=== PATIENT | male | born 1935 | race Caucasian/White ===

== ENCOUNTER → 2022-03-25 | Outpatient (CLI) | payer MEDICARE, OTHER ==
[~2022-03-25] MED LIST: AZIT250 PO; CEFP200 PO; CITA20 PO; CLIN300 PO; CLOP75 PO; Hair, Skin & N1 EACH PO; IBUP400 PO; OLAN5 PO; PANT40 PO; Pravachol80 MG PO; SACC250C PO; Tylenol325 MG PO
== END | disposition home or self-care (01) ==
LOC: LAB 13:17 → LAB SHORT 13:17
DX: L98.499 Non-pressure chronic ulcer of skin of other sites with unspecified severity (principal)
CPT/HCPCS: 87070; 87075; 87205

== ENCOUNTER 2022-06-19 19:22 | Inpatient (IN) | payer MEDICARE, OTHER ==
[~2022-06-19] VITALS: Ht 177.8 cm; Wt 68.0 kg
[~2022-06-19 19:22] MED LIST changes: +ACET325 PR; -Tylenol325 MG PO
[2022-06-19 21:36] LABS: BASOPHILS PERCENT AUTO 0 % (0-2); EOSINOPHILS PERCENT AUTO 0 % (0-6); Hematocrit 32.7 % (37.0-53.0); Hemoglobin 10.7 g/dL (13.5-17.5); IMMATURE GRAN ABSOLUTE AUTO 0.06 K/mm3 (0.00-0.10); IMMATURE GRAN PERCENT AUTO 2 % (0-1); LYMPHOCYTES ABSOLUTE AUTO 0.47 K/mm3 (0.84-5.20); LYMPHOCYTES PERCENT AUTO 13 % (21-46); MONOCYTES ABSOLUTE AUTO 0.53 K/mm3 (0.16-1.47); MONOCYTES PERCENT AUTO 15 % (4-13); Mean Corpuscular HGB 29.7 pg (26.0-34.0); Mean Corpuscular HGB Conc 32.7 g/dL (31.5-36.5); Mean Corpuscular Volume 91 fL (80-100); Mean Platelet Volume 11.2 fL (9.1-12.4); NEUTROPHILS PERCENT AUTO 71 % (41-73); Platelet Count 149 K/mm3 (150-400); RDW Coefficient Variation 13.1 % (11.7-14.2); RDW Standard Deviation 43.4 fL (35.1-46.3); White Blood Cell Count 3.66 K/mm3 (4.00-11.30)
[2022-06-19 21:47] LABS: Albumin, Blood 1.9 g/dL (3.4-5.0); Albumin/Globulin Ratio 0.7 (0.8-1.8); Bilirubin, Total 0.4 mg/dL (0.1-1.0); Bun/Creatinine Ratio 26.6 (12.0-20.0); Calcium, Blood 6.5 mg/dL (8.5-10.1); Creatinine, Blood 0.64 mg/dL (0.60-1.20); Globulin, Blood 2.8 g/dL (2.2-4.0); Magnesium, Blood 1.6 mg/dL (1.6-2.4); Potassium, Blood 3.6 mmol/L (3.5-5.5); Total Protein, Blood 4.7 g/dL (6.4-8.2)
[2022-06-19 23:04] LABS: Influenza A, PCR NEGATIVE (NEGATIVE); Influenza B, PCR NEGATIVE (NEGATIVE); Resp Syncytial Virus, PCR NEGATIVE (NEGATIVE)
[2022-06-19 23:32] LABS: SARS-Cov-2 (COVID-19) PCR, MMC POSITIVE (NEGATIVE)
--- NOTE | 2022-06-20 00:21 | NUR ---
PT ARRIVES TO THE FLOOR AT 2315HRS. PT IS ALERT TO SELF AND PLACE ONLY. BED IS LOW AND LOCKED, CALL LIGHT WITHIN REACH.
--- NOTE | 2022-06-20 05:01 | NUR ---
ASSUMED CARE OF PT AT 1900 HRS. PT IS A&OX4, HAS JEFFERSON IN PLACE FOR RETENTION AND IS ABLE TO MAKE NEEDS KNOWN. POST OP DAY 1 FOR I&D AND BILAT ABD DRAIN PLACEMENT, INCISIONS ARE CDI, CSM INTACT. PAIN IS MANAGED WITH PRN FENTANYL. PT TOLERATING CLEAR LIQUIDS. DRAINS PRODUCING MODERATE AMOUNTS OF SERO SANG FLUID. PT ABLE TO SLEEP 6+ HOURS THIS SHIFT. WILL CONTINUE TO MONITOR AND GIVE REPORT TO DAYSHIFT RN.
[2022-06-20 05:02] LABS: Hematocrit 37.8 % (37.0-53.0); Hemoglobin 12.5 g/dL (13.5-17.5); Mean Corpuscular HGB 29.1 pg (26.0-34.0); Mean Corpuscular HGB Conc 33.1 g/dL (31.5-36.5); Mean Corpuscular Volume 88 fL (80-100); Mean Platelet Volume 10.4 fL (9.1-12.4); Platelet Count 188 K/mm3 (150-400); RDW Coefficient Variation 12.8 % (11.7-14.2); RDW Standard Deviation 41.2 fL (35.1-46.3); White Blood Cell Count 4.81 K/mm3 (4.00-11.30)
[2022-06-20 05:18] LABS: Bun/Creatinine Ratio 22.5 (12.0-20.0); Calcium, Blood 8.2 mg/dL (8.5-10.1); Creatinine, Blood 0.84 mg/dL (0.60-1.20); Potassium, Blood 3.6 mmol/L (3.5-5.5)
--- NOTE | 2022-06-20 05:37 | NUR ---
ASSUMED CARE OF PT AT 2315 HRS. PT IS ALERT TO SELF AND PLACE ONLY AND IS [place]. ARRIVES TO THE FLOOR FROM THE ED FOR A MECHANICAL FALL. PT WAS C+ 3 WEEKS AGO, TESTED IN THE ED AND IS STILL C+ BUT NOT SHOWING ANY S/S. PAIN CONTROLLED WITH PRN DILAUDID. HAS R HIP FRACTURE POST FALL AT HOME YESTERDAY, CSM IS INTACT. PT ON [place]. HAS BED ALARM ON FOR SAFETY. HAS BEEN NPO SINCE MIDNIGHT. WILL CONTINUE TO MONITOR AND GIVE HANDOFF REPORT TO DAYSHIFT RN.
--- NOTE | 2022-06-20 15:45 | NUR ---
Met with Pt's son, Pt's brother, and brother's in [place]. Engaged in active listening as family reports Pt's wishes at this point are to start focusing on comfort and would like to get Pt home with hospice services. Educated on comfort care and hospice philosophy with V/U made by family. Family elects comfort care. Discussed hospice agencies to choose and answered questions. Continued supportive visit and active listening. Pt requires assistance with repositioning in bed, assistance with bathing, dressing and is incontinent of bladder. Pt not ambulatory and is bedbound. Pt has not been eating and drinking. Spoke with RN Edwin Love and discussed case. Kate will discuss further with family regarding hospice agency choices. Pt will need a same day admit onto hospice services. Spoke with Pt's Primary RN Richy and discussed case. Spoke with Dr Maria and discussed case. Placed Comfort Care order, comfort care order set, and D/C maintenance medications per V/O from Dr Maria. PPS 30% ADLs 5/6 Palliative Care will remain available
[2022-06-20 17:04] LABS: Source, Urine Foley catheter
[2022-06-20 17:26] LABS: Appearance, Urine Clear (Clear); Bilirubin, Urine Neg (Neg); Blood, Urine 2+ (Neg); Color, Urine Yellow (P-Yellow); Glucose Qualitative, Urine Neg (Neg); Ketones, Urine 1+ (Neg); Leukocyte Esterase, Urine Neg (Neg); Nitrite, Urine Neg (Neg); Protein, Urine 1+ (Neg); Urobilinogen, Urine NORM (Normal)
[2022-06-20 17:51] LABS: Bacteria Few /hpf; Hyaline Casts 0-2 /lpf (0-2); Squamous Epithelial Cells Rare /hpf (Few); White Blood Cells, Urine 0-2 /hpf (0-5)
--- NOTE | 2022-06-21 07:01 | NUR ---
SUMMARY PT PAIN TX PER EMAR. PT REMAINED COMFORTABLE DURING SHIFT. PT SLEPT WELL.
--- NOTE | 2022-06-21 18:56 | NUR ---
SHIFT SUMMARY PATIENT ON COMFORT CARE, PLAN IS TO DISCHARGE TOMORROW, FAMILY HAVE SCRIPTS AND ARE GETTING EQUIPMENT DELIVERED TODAY, CARE MANAGEMENT/PALIATIVE CARE FOLLOWING PT CARE AND ASSISTING WITH PT/FAMILY NEEDS FOR DISCHARGE.
--- NOTE | 2022-06-21 21:00 | NUR ---
PT RESTING COMFORTABLY IN BED. PT DENIES PAIN WHEN ASKED, AND DENIES NEEDS. WILL CONTINUE TO ASSESS T/O SHIFT.
--- NOTE | 2022-06-22 04:34 | NUR ---
SHIFT SUMMARY PT HAS RESTED COMFORTABLY T/O THE SHIFT WITH NO VERBAL OR NON VERBAL INDICATORS OF PAIN. NO GRIMACING OR MOANING. PT ASK SEVERAL TIMES T/O THE SHIFT IF HE WAS HAVING PAIN AND HE REPORTS NO PAIN AND DECLINES ANYTHING FOR PAIN EACH TIME WHEN ASKED. COMFORT ASSESSED T/O SHIFT. PT REQUESTS SIPS OF WATER T/O SHIFT. JEFFERSON IN PLACE PATENT AND DRAINING NOT MUCH OUTPUT. PT WITHOUT AIR HUNGER OR SECREATIONS. COMFORT ASSESSED T/O SHIFT, PT REPOSITIONS HIMSELF INDEPDENTLY IN BED NEEDED. BED IN LOWEST POSITION, CALL LIGHT WITHIN REACH.
--- NOTE | 2022-06-22 07:30 | NUR ---
ASSUMED CARE: PT IN BED, ATTEMPTED TO BOOST AND PT STATED THAT WAS PAINFUL. UPON FURTHER EVALUATION PT SEEMED ANNOYED AT NURSING QUESTIONS. PT IS [place]. SPEECH GARBLED AT TIMES. PT STATED HE WAS THIRSTY. OFFERED WATER AND HE SAID HE COULD DO IT HIMSELF. OFFERED TO HELP HIM GET REPOSITIONED IN BED OR TO HELP HIM WITH WATER AND PT DECLINED. ASKED PT IF HE WAS IN PAIN OR HUNGRY AND HE SAID HE WAS A LITTLE HUNGRY. ASKED IF I COULD HELP HIM WITH HIS FOOD AND HE STATED HE COULD DO IT HIMSELF. DISCUSSED WITH SPEECH THERAPIST EARLY INTERVENTION TO SEE IF SHE COULD ASSIST HIM FURTHER SINCE HE WAS HER PT YESTERDAY.
[2022-06-22] MEDS ORDERED: ATROPINE S0.4 MG/1 M SL (10:59)
[2022-06-22] MEDS ORDERED: OXAYDO5 M1 PO (11:00)
[2022-06-22] MEDS ORDERED: MORP20L SL (11:00)
[2022-06-22] MEDS ORDERED: MIRALAX17 GM PO (11:01)
[2022-06-22] MEDS ORDERED: TRANSDERM-SCOP1 EA10 TD (11:01)
--- NOTE | 2022-06-22 11:48 | NUR ---
PT'S SON CALLED WANTING TO KNOW WHEN PT WAS LEAVING. HISTORICAL INTERPRETER STATED AMBULANCE COMPANY CALLED AND SAID THEY WERE AWARE OF PT BUT RUNNING BEHIND DUE TO EMERGENCIES. CALL TO DR HURTADO AND DC PLANNING TO CHECK ON DC COORDINATION. CALL TO HOSPICE NURSE TO GET FAX NUMBER AND MED LIST WAS FAXED. HOSPICE NURSE STATED WILL CALL BACK FOR ETA. DR HURTADO TO SEE PT AND SON IS CURRENTLY AT BEDSIDE. SON REQUESTED PAIN MEDS FOR PT DUE TO AGITATION. NO FURTHER NEEDS. AWAITING RIDE TO GO HOME.
--- NOTE | 2022-06-22 12:33 | NUR ---
TRANSPORT CREW ARRIVED TO COLLECT PT. FAMILY AT BEDSIDE AND AWARE. PT'S IV'S DC'D WNL. JEFFERSON REMAINS IN PLACE. PT TAKEN VIA GURNEY BY CREW AND ESCORTED OUT. FAMILY FOLLOWING. CALLED HOSPICE NURSE TO MAKE HIM AWARE OF PT LEAVING. FAMILY AWARE THAT NURSE WILL CALL THEM. MED LIST FAXED FOR HOSPICE NURSE. NO OTHER NEEDS OR CONCERNS AT THIS TIME.
== END 2022-06-22 12:29 | disposition hospice, home (50) | DRG 535 ==
LOC: ER 19:22 → SURS 22:18
PROVIDERS: Emergency Medicine; Family Medicine; ADMIT Internal Medicine
DX: S72.141A Displaced intertrochanteric fracture of right femur, initial encounter for closed fracture (principal); U07.1 COVID-19; R62.7 Adult failure to thrive; Z66 Do not resuscitate; Z51.5 Encounter for palliative care; F25.9 Schizoaffective disorder, unspecified; Z68.21 Body mass index [BMI] 21.0-21.9, adult; I25.10 Atherosclerotic heart disease of native coronary artery without angina pectoris; J44.9 Chronic obstructive pulmonary disease, unspecified; D63.8 Anemia in other chronic diseases classified elsewhere; E78.5 Hyperlipidemia, unspecified; K21.9 Gastro-esophageal reflux disease without esophagitis; I73.9 Peripheral vascular disease, unspecified; Z95.5 Presence of coronary angioplasty implant and graft; Z87.891 Personal history of nicotine dependence; Z98.890 Other specified postprocedural states; Z79.02 Long term (current) use of antithrombotics/antiplatelets; Z90.49 Acquired absence of other specified parts of digestive tract; Z79.899 Other long term (current) drug therapy; W19.XXXA Unspecified fall, initial encounter
CPT/HCPCS: 0241U; 36415; 71045; 73502; 80048; 80053; 81001; 83735; 84484; 85025; 85027; 85730; 93005; 93010; 94760; 94762; 96374; 99285-25; A9270; J1170; J7030